=== PATIENT | female | born 1940 | race Caucasian/White ===

== ENCOUNTER 2017-05-02 16:22 | Inpatient (IN) | payer MEDICARE, OTHER ==
[~2017-05-02] VITALS: Ht 154.9 cm; Wt 40.6 kg
--- NOTE | ~2017-05-02 | CON ---
PATIENT'S NAME: ESTEFANI TRONCOSO [facility] AGE: 77 Y [address] ROOM: [place] [id number] LOCATION: GICU ADMIT DATE: 05/02/2017 Consultation DISCHARGE DATE: 05/03/2017 FAMILY PHYSICIAN: Physician, Unknown ATTENDING PHYSICIAN: Ady Brown DATE OF CONSULTATION: 05/02/2017 REFERRING PHYSICIAN: Edward Ty MD REFERRING: Hospitalist Service. REASON FOR REFERRAL: Critical care management. HISTORY OF PRESENT ILLNESS: The patient is a 77-year-old woman, who came in as a code blue. She was found unresponsive by a family member. She was without effective circulation for at least 20 minutes and probably closer to an hour. There was a pulse recovered after institution of CPR. She was transported to the emergency room and admitted to the intensive care unit under the care of the hospitalist. PAST MEDICAL HISTORY: Please refer to the admission history and physical exam. FAMILY HISTORY: Unobtainable. SOCIAL HISTORY: Unobtainable. REVIEW OF SYSTEMS: Unobtainable. PHYSICAL EXAMINATION: GENERAL: Unresponsive, intubated on mechanical ventilation. Mottled. ENT: Pupils unreactive. Endotracheal tube and OG tube in place. LUNGS: Diminished breath sounds. HEART: Regular. ABDOMEN: Nontender. EXTREMITIES: Mottled. Mild edema. No clubbing. ASSESSMENT: Cardiac arrest and probable significant anoxic brain injury. PATIENT'S NAME: ESTEFANI TRONCOSO [facility] AGE: 77 Y [address] ROOM: [address] [address] LOCATION: GICU ADMIT DATE: 05/02/2017 Consultation DISCHARGE DATE: 05/03/2017 FAMILY PHYSICIAN: Physician, Unknown ATTENDING PHYSICIAN: Ady Brown PLAN: Discussed with family code status and level of aggressiveness, but her prognosis is extremely poor. MD ELLIE MONTESINOS/verónica /[id number] d: 05/05/17 0958 t: 05/09/17 1303, CONSULTATION REPORT
--- NOTE | ~2017-05-02 | OR ---
PATIENT'S NAME: ESTEFANI TRONCOSO [facility] AGE: 77 Y [address] ROOM: [address] [address] LOCATION: GICU ADMIT DATE: 05/02/2017 OR/Procedure Report DISCHARGE DATE: 05/03/2017 FAMILY PHYSICIAN: Physician, Unknown ATTENDING PHYSICIAN: Ady Brown SURGEON: Atul Perez DO [employer]: DATE OF PROCEDURE: 05/02/2017 PREOPERATIVE DIAGNOSIS: Code blue arrest with tension pneumothorax and need for central venous access and arterial access for resuscitation. BRIEF HISTORY: Mrs. Troncoso is a 77-year-old white female, presented as a code blue arrest to the emergency department. I was called to see her because of tension pneumothorax. On my arrival, she was being bagged by Respiratory and Damir device was in place for resuscitation. Obvious subcutaneous emphysema was noted. No breath sounds were noted on the left. An incision was created and we entered the pleural space bluntly; vera of air was appreciated, a 28- Maltese chest tube was advanced without difficulty and secured to the chest wall. Obvious leak was noted. Breath sounds returned. The chest tube was secured to the chest wall with 0 silk and we then sterilely prepped and draped the left infraclavicular space. The subclavian vein was accessed without difficulty and guidewire fed without resistance. Stab incision was made with a needle, and the needle was withdrawn. Soft tissue dilators were placed over the guidewire and withdrawn. Then a triple-lumen catheter was placed over the guidewire and the guidewire was withdrawn. Each lumen aspirated easily for dark venous blood and was flushed with sterile saline and is secured in position with 2-0 silk. Sterile dressing was applied. We then turned our attention to the left radial artery. The artery was accessed and a guidewire fed but only approximately 2 cm and the catheter would not feed over the guide wire. We removed the guidewire, had good backflow from the catheter but the catheter would not advance. Therefore we removed this catheter, held direct pressure over the radial artery, and placed a dressing. We then addressed the left femoral artery. It was again sterilely prepped and draped. The left femoral artery was then accessed and a guidewire fed without resistance and then over the guide wire, we placed our pediatric jugular catheter and guidewire was removed. Catheter had good arterial backflow and was connected to the monitoring system for [id number] monitoring, was secured in position with a 2-0 silk and a sterile dressing was applied. ATUL PEREZ DO PATIENT'S NAME: ESTEFANI TRONCOSO [facility] AGE: 77 Y [address] ROOM: [place] [address] LOCATION: GICU ADMIT DATE: 05/02/2017 OR/Procedure Report DISCHARGE DATE: 05/03/2017 FAMILY PHYSICIAN: Physician, Unknown ATTENDING PHYSICIAN: dAy Brown/verónica /[id number] CC: Sera Bocanegra MD d: 05/07/17 0858 t: 05/07/17 1634, OPERATIVE SUMMARY
--- NOTE | ~2017-05-02 | ER ---
PATIENT'S NAME: ESTEFANI TRONCOSO [facility] AGE: 77 Y [address] ROOM: [address] [address] LOCATION: [facility] ADMIT DATE: 05/02/2017 ER/Outpatient Report DISCHARGE DATE: FAMILY PHYSICIAN: PHYSICIAN, UNKNOWN ATTENDING PHYSICIAN: ISREAL BROWN Time of Arrival: 1624 hours. Time of Evaluation/Seen 1624 hours. IDENTIFICATION: A 77-year-old female. CHIEF COMPLAINT: Code Blue. HISTORY OF PRESENT ILLNESS: The patient is a 77-year-old female, who arrives Code Blue from [place] ambulance. Minimal history was obtained on arrival. The patient apparently was an unwitnessed arrest, uncertain how long she had been down. Her son had gone outside and been outside for at least 1 hour. They live outside of [place] and no bystander. CPR was provided by the son while [place] was en- route. Later family did say it probably took 10 to 20 minutes prior to ambulance arrival due to where they live. [place] arrived, was asystole, and ACLS protocol was followed. The patient did receive epinephrine x2. She was intubated with bag-valve mask and a pulse did return en route. On arrival to [facility], she had a heart rate of 70, end-tidal CO2 of 26. When patient arrived to the hospital, a 12-lead EKG was done at 1403 hours revealed atrial fibrillation, with a heart rate of approximately 60. Laboratories were ordered. A second IV line was ordered. EKG was ordered. On arrival, the patient did have breath sounds bilaterally, but had a lot of subcutaneous emphysema on the left side. 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 Us. She had been on anticoagulation in the past. We did not know on arrival if she was on any anticoagulation. I do believe that after family arrived, they indicate that she was seen at [facility] last week for some bleeding from her gums after a tooth extraction and she had been on Eliquis which was held after that. ALLERGIES: NONE KNOWN. CURRENT MEDICATIONS: Unknown. 1. We did get records faxed from [facility] to indicate that Eliquis was stopped on April 27. PATIENT'S NAME: ESTEFANI TRONCOSO [facility] AGE: 77 Y [address] ROOM: [address] [address] LOCATION: [facility] ADMIT DATE: 05/02/2017 ER/Outpatient Report DISCHARGE DATE: FAMILY PHYSICIAN: PHYSICIAN, UNKNOWN ATTENDING PHYSICIAN: ISREAL BROWN 2. Advair 2 puffs b.i.d. 3. Benadryl 25 mg q.4 hours p.r.n. 4. Aspirin 81 mg once daily. 5. Ativan 0.5 mg q.6 hours p.r.n. 6. Atrovent 2 puffs 4 times daily. 7. Calcium carbonate with vitamin D 1 daily. 8. Carvedilol 12.5 mg b.i.d. 9. Escitalopram 10 mg daily. 10. Ferrous sulfate 325 mg daily. 11. Fish oil 1000 mg daily. 12. Florastor 250 mg b.i.d. 13. Lasix 20 mg on Friday, Friday, Friday, and Friday. 14. Lisinopril 10 mg b.i.d. 15. MiraLAX 17 g daily. 16. Synthroid 50 mcg daily. 17. Vitamin B12, 500 mcg daily. 18. Xopenex q.8 hours p.r.n. ALLERGIES: ACCORDING TO THOSE RECORDS INCLUDE ALBUTEROL, CODEINE, ERYTHROMYCIN, MOXIFLOXACIN, PAIN KILLERS, AND SODIUM SULFATE. MEDICAL PROBLEMS: 1. According to old records indicate a history of COPD, hospitalized in December. 2. Atrial fibrillation. 3. Chronic systolic congestive heart failure with EF of 30%. 4. Anxiety. 5. Type A aortic dissection status post repair. PAST SURGICAL HISTORY: Prior Surgeries: 1. Aortic dissection repair per Dr. Us. 2. Recent tooth extraction. PHYSICAL EXAMINATION: VITAL SIGNS: On arrival, the patient's heart rate was 79, blood pressure was unable to obtain, she quickly went into PEA, was given 1 mg x2 of epinephrine. Heart rate return of 84, and she had needle decompression at 2nd intercostal space, left upper chest. Dr. Us arrived to place a chest tube on the left side as well as a central line on the left side. EMERGENCY DEPARTMENT COURSE: EKG; atrial fibrillation at 54 beats per minute. No acute ST elevation or depression. ABGs; 7.54 of pH, pCO2 of 36, pO2 of 347, and sats 100%. Lactate PATIENT'S NAME: ESTEFANI TRONCOSO [facility] AGE: 77 Y [address] ROOM: [id number] [place], [place] [address] LOCATION: [facility] ADMIT DATE: 05/02/2017 ER/Outpatient Report DISCHARGE DATE: FAMILY PHYSICIAN: PHYSICIAN, UNKNOWN ATTENDING PHYSICIAN: ISREAL BROWN A 12.0 at 1656 hours, and repeat lactate at 1905 hours at 7.11. Sodium 140, potassium 5.9, chloride 99, CO2 of 27, BUN 24, creatinine 1.0, and blood sugar 106. Albumin 2.6, AST 495, and ALT 242. Phosphorus 7.8, CK-MB 4.9, and troponin I of 0.293. Hemoglobin 7.8 which when compared to [facility] hemoglobin on April 26 at that time was 9.2, hematocrit 27.3, macrocytic indices, and platelets 115,000. Platelet count was 109,000 on April 26, white blood cell count 9.5. INR 1.33. White blood cell differential 54% segs, 15% bands. Mahajan catheter was placed with no return of urine. Initial chest x-ray prior to needle decompression and chest tube was not obtained. One-view chest x-ray, after chest tube shows no evidence of pneumothorax. At this time, chest tube in the left upper chest, appropriate central line placement, left side, left subclavian. OG not in place. This was replaced. Left femoral arterial line was placed by Dr. Us. The patient's initial blood pressure after return of spontaneous circulation was 176/89, but then she did drop to 64/49. Epinephrine drip was initiated, and blood pressure remained in the 60s. Vasopressin drip was initiated. The patient was typed and crossed for 2 units of packed red blood cells. The patient was incontinent of stool. Procalcitonin was less than 0.05. IMPRESSION AND PLAN: 1. Asystole and pulseless electrical activity with return of spontaneous circulation. The patient had an approximately 45 minutes of cardiopulmonary resuscitation. This was an unwitnessed arrest, uncertain how long this patient went without any initial cardiopulmonary resuscitation. I did discuss with two grandchildren who were present the gravity of the situation. Dr. Brown also spoke with them. At this point, they do wish for her to remain to be a full code. 2. Hypotension. The patient on two pressors, maxed out at 3 L of IV fluids. 3. Pneumothorax, left side with massive amounts of subcutaneous emphysema all along her left chest and left abdomen, needle decompression performed in the emergency room, and chest tube was placed per Dr. Us. 4. Hyperkalemia. 5. Elevated liver enzymes consistent with shock liver. 6. Elevated cardiac enzymes. 7. Anemia. The patient's hemoglobin dropped in 1 week from 9.5 to 7.8, she has been typed and crossed for 2 units of packed red blood cells. 8. Thrombocytopenia, stable. 9. History of cardiomyopathy. 10. Atrial fibrillation. 11. Bradycardia. The patient became bradycardic with heart rates of 45 to 50. She was given atropine 1 mg IV, heart rates improved to 80. 12. Chronic hypoxic respiratory failure. The patient is currently intubated. Dr. Us consulted here in the emergency room. I spoke with Dr. Ty, dealer compliance representative who requested hospitalist for admission. Dr. Brown evaluated the patient in the emergency room and planned for PATIENT'S NAME: ESTEFANI TRONCOSO [facility] AGE: 77 Y [address] ROOM: [address] [address] LOCATION: [facility] ADMIT DATE: 05/02/2017 ER/Outpatient Report DISCHARGE DATE: FAMILY PHYSICIAN: PHYSICIAN, UNKNOWN ATTENDING PHYSICIAN: ISREAL BROWN admission to ICU with Dr. Ty, and Dr. Us consulting as well as Cardiology. Please refer to the Code Blue record as well. The patient arrived at 1624 hours and 1 hour of critical care was provided with this patient in addition to needle decompression, left chest. JOSE OSEI MD CAR/modl /[id number] d: 05/03/17 0237 t: 07/23/17 0834, OUTPATIENT REPORT
--- NOTE | ~2017-05-02 | HP ---
PATIENT'S NAME: ESTEFANI TRONCOSO [facility] AGE: 77 Y [address] ROOM: [place] [address] LOCATION: GICU ADMIT DATE: 05/02/2017 History & Physical DISCHARGE DATE: FAMILY PHYSICIAN: PHYSICIAN, UNKNOWN ATTENDING PHYSICIAN: ISREAL FERNANDEZ DATE OF SERVICE: CHIEF COMPLAINT: Unresponsiveness post cardiac arrest. HISTORY OF PRESENT ILLNESS: A 77-year-old lady with a past medical history of heart failure, atrial fibrillation with ejection fraction of 30%, end-stage COPD with 2 L of oxygen all the time at home was found down at home by son. Son saw her last time about 1 hour ago. The down time is not noted. He called 911 and 911 got there after 20 minutes and no resuscitation was done before that point. 911 found her in asystole and started on resuscitation. They got the pulse back intermittently during the resuscitation. Total resuscitation time is about 45 minutes. In our emergency department, she was still in PEA and resuscitation was continued. Then, she was found to have left-sided pneumothorax on physical exam. A needle aspiration was done and then surgical chest tube was placed. Intubation was done. Central line was placed. Blood pressure was found to be very low and she was started on vasopressin as well as epinephrine drip. At this point, there was no meaningful history that can be obtained because of the patient's unconsciousness. Rest of the history was taken from the family. The review of system was attempted from the family, and it appears that she did not complain of any chest pain, any unusual shortness of breath than her baseline. Did not complain of any dizziness, any bleeding, or any other unusual symptoms. REVIEW OF SYSTEMS: All other systems reviewed and were negative except what is mentioned in the HPI. PAST MEDICAL HISTORY: Congestive heart failure with ejection fraction 30%, atrial fibrillation, chronic hypoxic respiratory failure, questionable history of ischemic heart disease. MEDICATIONS: Being reconciled right now. ALLERGIES: THE PATIENT IS ALLERGIC TO MACROLIDES, QUINOLONES, ETHYL ALCOHOL, CODEINE, [facility] 77 Y [address] ROOM: [place] [address] LOCATION: GICU ADMIT DATE: 05/02/2017 History & Physical DISCHARGE DATE: FAMILY PHYSICIAN: PHYSICIAN, UNKNOWN ATTENDING PHYSICIAN: ISREAL FERNANDEZ ALBUTEROL, ERYTHROMYCIN, MOXIFLOXACIN. SOCIAL HISTORY: The patient has a 60 to 80-pack year smoking history. Family claims that she quit about 4 to 5 years ago. FAMILY HISTORY: Was reviewed and was negative for cardiac arrest. PHYSICAL EXAMINATION: GENERAL: At this point, blood pressure is about 110s on vasopressin as well as epinephrine. Heart rate is in the 60s with multiple PVCs noted on the telemetry. Heart rate in the 45s on the intubated setting. 94% on 100% oxygen and 6 of PEEP. NEUROLOGICAL: Pinpoint pupil. GCS 3/15. CARDIAC: Variable intensity S1, variable S2. LUNGS: Bilateral crackles noted all over the lungs. SKIN: Severe subcutaneous emphysema noted. Left-sided chest tube is in place. ABDOMEN: Again, subcutaneous emphysema noted, soft. Bowel sounds are present. EXTREMITIES: No clubbing, cyanosis, or edema. Pulses poorly palpable. Cold extremities. PSYCH: Cannot be evaluated at this point. ENDOCRINE: There does not appear to be any thyromegaly at this point. MUSCULOSKELETAL: No joint swelling noted at this point. DIAGNOSTIC DATA: EKG done in the emergency department showed atrial fibrillation with low ventricular rates. CBC was impressive for hemoglobin of 7.8, lactic was 12. Troponin initial was 0.2. Potassium 5.9, but a hemolyzed sample. BUN 24, creatinine 1.0. AST 495, ALT 242. CAT scan of the head is pending. ASSESSMENT/PLAN: 1. Post cardiac arrest. 2. Congestive heart failure. 3. Acute on chronic hypoxic respiratory failure. 4. Atrial fibrillation. 5. Subcutaneous emphysema. 6. Left-sided pneumothorax. 7. Acute anemia. 8. Severe lactic acidosis. 9. Shock likely cardiogenic at this point. PLAN: PATIENT'S NAME: ESTEFANI TRONCOSO [facility] AGE: 77 Y [address] ROOM: [address] [address] LOCATION: [facility] ADMIT DATE: 05/02/2017 History & Physical DISCHARGE DATE: FAMILY PHYSICIAN: PHYSICIAN, UNKNOWN ATTENDING PHYSICIAN: ISREAL FERNANDEZ We are going to admit this patient to the ICU. Cardiology and Pulmonary consultation will be obtained for post cardiac arrest assessment and targeted temperature management. Did speak to the granddaughter and sister. I explained the poor prognosis at this point. The power of commonwealth attorney is one of the son, and over the phone, he conveyed to the emergency physician that everything needs to be done right now and she is full code. Rest of the management will depend on her course in the hospital. MD NATALIO QUEEN/verónica /[id number] D: T: HISTORY & PHYSICAL
--- NOTE | ~2017-05-02 | DS ---
PATIENT'S NAME: ESTEFANI TRONCOSO [facility] AGE: 77 Y [address] ROOM: [place] [address] LOCATION: GICU ADMIT DATE: 05/02/2017 Discharge Summary DISCHARGE DATE: 05/03/2017 FAMILY PHYSICIAN: Physician, Unknown ATTENDING PHYSICIAN: Bc Cameron The patient during this hospitalization. PRINCIPAL DIAGNOSES: 1. Cardiac arrest with confirmed downtime without CPR 20 minutes and very likely about 60 minutes of downtime without CPR. Downtime with CPR about 45 minutes. 2. Left-sided pneumothorax. SECONDARY DIAGNOSES: Congestive heart failure with ejection fraction of 30%, atrial fibrillation, chronic hypoxic respiratory failure, and questionable history of ischemic heart disease. HOSPITAL COURSE: A 77-year-old lady who was brought to the emergency department via EMS and was being actively coded. The patient was found down at home 1 hour after her son left the house and came back. He called 911 and did not start any CPR. 911 reached there after 20 minutes and started CPR with rhythm of PEA as well as asystole. 45 minutes of resuscitation was done. On arrival to the emergency department, she was noted to have subcutaneous emphysema on the left side. A left needle decompression of the pneumothorax was done and a chest tube was placed by the cardiothoracic surgeon on the left side. Return of spontaneous circulation was achieved and the patient required multiple pressors. A CAT scan of the head was done, which did show lack of differentiation of machado and white matter, consistent with anoxic/ischemic injury. The patient was a full code, and we contacted the POA, and after family meeting was held, the patient was compassionately extubated. The patient in the hospital on 05/03/2017 around 2:41 a.m. MD NATALIO QUEEN/verónica /[id number] d: 05/15/17 0232 t: 05/15/17 0832, DISCHARGE SUMMARY
[2017-05-02 17:10] LABS: HEMATOCRIT 27.3 % (33.0-46.0); HEMOGLOBIN 7.8 g/dL (10.0-15.0); MCH 30.4 pg (27.0-34.0); MCHC 28.6 gm/dL (32.0-36.5); MCV 106.2 fl (83.0-98.0); MPV 10.9 fl (9.4-12.4); PLATELET COUNT 115 K/uL (150-450); RBC 2.57 M/uL (3.50-5.50); RDW-CV 13.4 % (11.9-14.6); WBC 9.5 K/uL (4.0-11.0)
[2017-05-02 17:19] LABS: INR - (THERAPEUTIC) 1.33 (0.92-1.07); PTT 31 SECONDS (25-32)
[2017-05-02 17:33] LABS: ALBUMIN 2.6 gm/dL (3.5-5.0); CALCIUM 7.9 mg/dL (8.5-10.5); TOTAL BILIRUBIN 0.6 mg/dL (0.0-1.5); TOTAL PROTEIN 5.4 g/dL (6.0-8.4)
[2017-05-02 17:34] LABS: ANION GAP 19.9 (10.0-19.0)
[2017-05-02 17:35] LABS: MAGNESIUM 2.3 mg/dL (1.8-2.6); POTASSIUM 5.9 mMol/L (3.7-5.1)
[2017-05-02 17:36] LABS: ABSOLUTE NEUTROPHIL CT (ANC) 6.6 K/uL (1.8-7.8); BANDED NEUTROPHIL # 1.4 K/uL (0.0-0.1); BANDED NEUTROPHILS % 15 %; LYMPHOCYTE # 2.7 K/uL (0.8-4.0); LYMPHOCYTE % 28 %; MONOCYTE # 0.1 K/uL (0.0-1.0); SEGMENTED NEUTROPHIL # 5.1 K/uL (1.8-7.8); SEGMENTED NEUTROPHIL % 54 %
[2017-05-02 19:14] LABS: BICARBONATE 30.6 mmol/L (18.0-23.0); PCO2 36 mmHg (35-45); PO2 347 mmHg (80-90)
[2017-05-02 20:23] LABS: HEMATOCRIT 23.1 % (33.0-46.0); MCH 30.1 pg (27.0-34.0); MCHC 29.4 gm/dL (32.0-36.5); MCV 102.2 fl (83.0-98.0); MPV 10.6 fl (9.4-12.4); PLATELET COUNT 98 K/uL (150-450); RBC 2.26 M/uL (3.50-5.50); RDW-CV 13.2 % (11.9-14.6); WBC 8.3 K/uL (4.0-11.0)
[2017-05-02 20:26] LABS: HEMOGLOBIN 6.8 g/dL (10.0-15.0)
[2017-05-02 20:41] LABS: CREATININE 0.7 mg/dL (0.5-1.1)
[2017-05-02 20:42] LABS: ANION GAP 14.5 (10.0-19.0); CALCIUM 6.8 mg/dL (8.5-10.5); POTASSIUM 4.5 mMol/L (3.7-5.1); TOTAL PROTEIN 4.1 g/dL (6.0-8.4)
[2017-05-02 20:52] LABS: ABSOLUTE NEUTROPHIL CT (ANC) 7.7 K/uL (1.8-7.8); BANDED NEUTROPHIL # 1.6 K/uL (0.0-0.1); BANDED NEUTROPHILS % 19 %; LYMPHOCYTE # 0.5 K/uL (0.8-4.0); LYMPHOCYTE % 6 %; MONOCYTE # 0.1 K/uL (0.0-1.0); SEGMENTED NEUTROPHIL # 6.1 K/uL (1.8-7.8); SEGMENTED NEUTROPHIL % 74 %
[2017-05-02 21:03] LABS: BICARBONATE 31.1 mmol/L (18.0-23.0); PCO2 59 mmHg (35-45); PO2 85 mmHg (80-90)
--- NOTE | 2017-05-03 04:42 | NUR ---
Patient extubated to comfort care at around 0145.
== END 2017-05-03 02:41 | disposition expired | DRG 296 ==
LOC: GMED 16:22 → GICU 18:54
PROVIDERS: Family Medicine; ADMIT Internal Medicine
PROC: 0BH17EZ Insertion of Endotracheal Airway into Trachea, Via Natural or Artificial Opening (ICD-10-PCS; principal; 2017-05-02)
PROC: 5A1935Z Respiratory Ventilation, Less than 24 Consecutive Hours (ICD-10-PCS; principal; 2017-05-02)
PROC: 04HL33Z Insertion of Infusion Device into Left Femoral Artery, Percutaneous Approach (ICD-10-PCS; 2017-05-02)
PROC: 02HV33Z Insertion of Infusion Device into Superior Vena Cava, Percutaneous Approach (ICD-10-PCS; 2017-05-02)
PROC: 0W9B30Z Drainage of Left Pleural Cavity with Drainage Device, Percutaneous Approach (ICD-10-PCS; 2017-05-02)
PROC: 0WJ83ZZ Inspection of Chest Wall, Percutaneous Approach (ICD-10-PCS; 2017-05-02)
PROC: 3E043XZ Introduction of Vasopressor into Central Vein, Percutaneous Approach (ICD-10-PCS; 2017-05-02)
PROC: 5A12012 Performance of Cardiac Output, Single, Manual (ICD-10-PCS; 2017-05-02)
PROC: 30233K1 Transfusion of Nonautologous Frozen Plasma into Peripheral Vein, Percutaneous Approach (ICD-10-PCS; 2017-05-02)
PROC: 30233N1 Transfusion of Nonautologous Red Blood Cells into Peripheral Vein, Percutaneous Approach (ICD-10-PCS; 2017-05-02)
DX: I46.9 Cardiac arrest, cause unspecified (principal); J96.21 Acute and chronic respiratory failure with hypoxia; R57.9 Shock, unspecified; J98.2 Interstitial emphysema; G93.1 Anoxic brain damage, not elsewhere classified; E87.2 Acidosis; J93.9 Pneumothorax, unspecified; I50.9 Heart failure, unspecified; Z51.5 Encounter for palliative care; Z66 Do not resuscitate; I48.91 Unspecified atrial fibrillation; R00.1 Bradycardia, unspecified; Z99.81 Dependence on supplemental oxygen; J44.9 Chronic obstructive pulmonary disease, unspecified; E87.5 Hyperkalemia; D64.9 Anemia, unspecified; I25.9 Chronic ischemic heart disease, unspecified; Z88.1 Allergy status to other antibiotic agents; Z88.8 Allergy status to other drugs, medicaments and biological substances; Z91.09 Other allergy status, other than to drugs and biological substances; Z87.891 Personal history of nicotine dependence
CPT/HCPCS: J0171; J0461; J2270; J7030; J7040; J7050; J7060; P9016; P9017

== ENCOUNTER → 2017-05-02 | Outpatient (CLI) | payer MEDICARE, OTHER ==
[~2017-05-02] MED LIST: ADVAIR 250-501 EACH INH; ASPIRIN (CHILDR81 MG PO; ATIVAN 0.5MG0.5 MG PO; AUGMENTIN875 MG PO; BENADRYL25 MG PO; COREG6.25 MG PO; DELTASONE10 MG PO; DOXYCYCLINE100 MG PO; ELIQUIS5 MG PO; FEOSOL325 MG PO; FISH OIL1000 MG PO; FLORASTOR250 MG PO; FOLTX TABLET1 EACH PO; HUMIBID LA (MU600 MG PO; LEVALBUTER1.25 MG/0. PO; LEVOTHYROXINE50 MCG PO; LEXAPRO10 MG PO; MIRALAX PO527 GM/BOT PO; MUCINEX DM ER1 EAC1 PO; SPIRIVA HANDIHA1 KIT INH; SUDAFED 12 HOU120 MG PO; TUMS REGULAR ST1 TAB PO; ZESTRIL2.5 MG PO; [UNRECOGNIZED DRUG - OTHER] TOP
== END | disposition disaster alternative care site (69) ==
LOC: GAMB 15:48
DX: I46.9 Cardiac arrest, cause unspecified (principal)